=== PATIENT | male | born 2000 | race Caucasian/White ===

== ENCOUNTER 2019-03-22 10:51 | Emergency (ER) | payer SELFPAY ==
[~2019-03-22] VITALS: Ht 177.8 cm; Wt 77.1 kg
--- NOTE | 2019-03-22 11:51 | RAD ---
EXAM: ABDOMEN 2 VIEWS WITH PA CHEST History: Abdominal pain, constipation TECHNIQUE: An upright view the chest and upright and supine views of the abdomen COMPARISON: None available. FINDINGS: There is no subdiaphragmatic free air. There is no bowel dilatation or evidence of obstruction. There are no abnormal calcifications. Feces identified in the colon throughout likely constipation. IMPRESSION: Feces and gas noted in the colon likely constipation. Electronically signed by: Gaurav Ford MD (03/22/2019 11:48 AM) [id number]
[2019-03-22] MEDS ORDERED: MAGNESIUM CITRATE 296 ML SOLUTION. PO ONE (12:00)
[2019-03-22 12:07] LABS: BASO % 0 % (0-3); EOS # 0.4 x10^3/uL (0.0-0.7); EOS % 3 % (0-3); HEMOGLOBIN 16.4 g/dL (13.0-17.5); LYMPH # 1.7 x10^3/uL (1.0-4.8); LYMPH % 14 % (24-48); MEAN CORPUSCULAR HEMOGLOBIN 29 pg (25-35); MEAN CORPUSCULAR HGB CONC 35 g/dL (31-37); MEAN CORPUSCULAR VOLUME 84 fL (79-100); MONO # 0.7 x10^3/uL (0.0-1.1); MONO % 6 % (0-9); NEUT # 9.5 x10^3uL (1.8-7.7); NEUT % 77 % (31-73); PLATELET COUNT 287 x10^3/uL (140-400); RED BLOOD COUNT 5.57 x10^6/uL (4.30-5.70); RED CELL DISTRIBUTION WIDTH 13.5 % (11.5-14.5); WHITE BLOOD COUNT 12.3 x10^3/uL (4.0-11.0)
[2019-03-22 12:15] LABS: CALCIUM 10.1 mg/dL (8.5-10.1); GFR 95.3; POTASSIUM 4.1 mmol/L (3.5-5.1)
[2019-03-22 12:30] LABS: ALBUMIN 4.3 g/dL (3.4-5.0); ALBUMIN/GLOBULIN RATIO 1.1 (1.0-1.7); TOTAL BILIRUBIN 0.3 mg/dL (0.2-1.0); TOTAL PROTEIN 8.1 g/dL (6.4-8.2)
[2019-03-22 13:06] LABS: BILIRUBIN,URINE SMALL (NEG); CLARITY,URINE CLEAR; NITRITE,URINE NEGATIVE (NEG); PROTEIN,URINE NEGATIVE (NEG-TRACE)
[2019-03-22 13:13] LABS: BARBITURATES NEG (NEG); BENZODIAZEPINES NEG (NEG); CANNABINOIDS POS (NEG); COCAINE NEG (NEG); METHADONE NEG (NEG); OPIATES NEG (NEG); PHENCYCLIDINE NEG (NEG)
[2019-03-22 13:15] LABS: AMPHETAMINE/METHAMPHETAMINE NEG (NEG)
[2019-03-22 13:23] LABS: COLOR,URINE DK YELLOW; SQUAMOUS EPITHELIAL CELL,UR FEW /LPF
[2019-03-22 13:24] LABS: BACTERIA,URINE 0 /HPF (0-FEW); RBC,URINE 0 /HPF (0-2); WBC,URINE OCC /HPF (0-4)
[2019-03-22] MEDS ORDERED: ONDANSETRON PF 4 MG/2 ML VIAL. IV ONE (13:45)
[2019-03-22] MEDS ORDERED: CONTRAST GIVEN. MC PRN (14:00)
[2019-03-22] MEDS ORDERED: IOHEXOL 300 MG/ML 100ML VIAL. IV ONE (14:00)
[2019-03-22 14:25] VITALS: BP 117/61
--- NOTE | 2019-03-22 14:35 | RAD ---
Examination: CT of the abdomen pelvis with IV contrast HISTORY: History of abdominal pain, vomiting TECHNIQUE: Axial CT images of the abdomen pelvis were performed with IV contrast. Coronal and sagittal reformats are performed. Exposure: One or more of the following individualized dose reduction techniques were utilized for this examination: 1. Automated exposure control 2. Adjustment of the mA and/or kV according to patient size 3. Use of iterative reconstruction technique FINDINGS: 7 mm nodule identified in the left lingula of the lung. The bibasilar lungs are clear.. No evidence of free air identified in the abdomen. The visualized liver, spleen, adrenals grossly appears unremarkable. The gallbladder is mildly distended. The stomach is mildly distended. The visualized pancreas grossly appears unremarkable. The small bowel is nondilated. Appendix is normal. There is mild diffuse thickened appearance of the colon throughout with mild surrounding fat stranding likely diffuse colitis. The bilateral kidneys enhance symmetrically. The caliber of the aorta grossly appears unremarkable. Urinary bladder is mildly distended. No evidence of lytic or destructive lesion. IMPRESSION: 1. Diffuse thickened appearance of the wall of the colon throughout with mild surrounding fat likely colitis. 2. 7 mm nodule identified in the left lingula of the lung. Follow-up nonemergent chest CT can be considered. Electronically signed by: Gaurav Ford MD (03/22/2019 2:32 PM) [facility]
[2019-03-22] MEDS ORDERED: CIPR500T94 PO (14:48)
[2019-03-22] MEDS ORDERED: METR500T PO (14:48)
[2019-03-22] MEDS ORDERED: ONDA4TAB7 PO (14:48)
--- NOTE | 2019-03-22 14:48 | PHYS DOC ---
Past Medical History Past Medical History: Other Additional Past Medical Histor: L HIP DYSPLASIA Past Surgical History: Other Additional Past Surgical Histo: L HIP Additional Information: 1 PPD Alcohol Use: None Drug Use: None Adult General Chief Complaint Chief Complaint: ABDOMINAL PAIN HPI HPI Patient is a 18 year old male with no significant medical history presents to the ED today complaining of 10 out of 10 sharp intermittent bilateral low back pain radiating to bilateral low abdomen that began 3 days ago. Patient states he has not had a bowel movement for 3 days. He states he feels nauseated but has not vomited. Denies any diarrhea. Denies any fever. Review of Systems Review of Systems Constitutional: Denies fever or chills [] Eyes: Denies change in visual acuity, redness, or eye pain [] HENT: Denies nasal congestion or sore throat [] Respiratory: Denies cough or shortness of breath [] Cardiovascular: No additional information not addressed in HPI [] GI: Reports abdominal pain, nausea, denies any vomiting, denies any diarrhea, concerned he could be constipated : Denies dysuria or hematuria [] Musculoskeletal: Reports back pain Integument: Denies rash or skin lesions [] Neurologic: Denies headache, focal weakness or sensory changes [] Endocrine: Denies polyuria or polydipsia [] All other systems were reviewed and found to be within normal limits, except as documented in this note. Current Medications Current Medications Current Medications Medications (Trade) Dose Ordered Sig/Bello Start Time Stop Time Status Last Admin Dose Admin Info (CONTRAST GIVEN -- Rx MONITORING) 1 each PRN DAILY PRN 03/22/19 14:00 03/24/19 13:59 Iohexol (Omnipaque 300 Mg/ml) 75 ml 1X ONCE 03/22/19 14:00 03/22/19 14:01 DC 03/22/19 14:18 75 ML Magnesium Citrate (Citroma) 296 ml 1X ONCE 03/22/19 12:00 03/22/19 12:01 DC 03/22/19 12:23 296 ML Ondansetron HCl (Zofran) 4 mg 1X ONCE 03/22/19 13:45 03/22/19 13:46 DC 03/22/19 14:25 4 MG Allergies Allergies Allergies Coded Allergies Type Severity Reaction Last Updated Verified No Known Drug Allergies 03/22/19 No Physical Exam Physical Exam Constitutional: Well developed, well nourished, no acute distress, non-toxic appearance. [] HENT: Normocephalic, atraumatic, bilateral external ears normal, oropharynx moist, no oral exudates, nose normal. [] Eyes: PERRLA, EOMI, conjunctiva normal, no discharge. [] Neck: Normal range of motion, no tenderness, supple, no stridor. [] Cardiovascular:Heart rate regular rhythm, no murmur [] Lungs & Thorax: Bilateral breath sounds clear to auscultation [] Abdomen: Bowel sounds normal, soft, mild tenderness noted on the left lower quadrant, no right upper quadrant or right lower quadrant tenderness, no guarding, no rebound tenderness, no masses, no pulsatile masses. [] Skin: Warm, dry, no erythema, no rash. [] Back: No tenderness, no CVA tenderness. [] Extremities: No tenderness, no cyanosis, no clubbing, ROM intact, no edema. [] Neurologic: Alert and oriented X 3, normal motor function, normal sensory function, no focal deficits noted. [] Psychologic: Affect normal, judgement normal, mood normal. [] Current Patient Data Vital Signs Vital Signs Date Time Temp Pulse Resp B/P (MAP) Pulse Ox O2 Delivery O2 Flow Rate FiO2 03/22/19 14:25 82 17 117/61 (79) 97 Room Air 03/22/19 11:08 97.6 97.6 Lab Values Laboratory Tests Test 03/22/19 11:43 03/22/19 12:50 White Blood Count 12.3 x10^3/uL (4.0-11.0) H Red Blood Count 5.57 x10^6/uL (4.30-5.70) Hemoglobin 16.4 g/dL (13.0-17.5) Hematocrit 47.0 % (39.0-53.0) Mean Corpuscular Volume 84 fL (79-100) Mean Corpuscular Hemoglobin 29 pg (25-35) Mean Corpuscular Hemoglobin Concent 35 g/dL (31-37) Red Cell Distribution Width 13.5 % (11.5-14.5) Platelet Count 287 x10^3/uL (140-400) Neutrophils (%) (Auto) 77 % (31-73) H Lymphocytes (%) (Auto) 14 % (24-48) L Monocytes (%) (Auto) 6 % (0-9) Eosinophils (%) (Auto) 3 % (0-3) Basophils (%) (Auto) 0 % (0-3) Neutrophils # (Auto) 9.5 x10^3uL (1.8-7.7) H Lymphocytes # (Auto) 1.7 x10^3/uL (1.0-4.8) Monocytes # (Auto) 0.7 x10^3/uL (0.0-1.1) Eosinophils # (Auto) 0.4 x10^3/uL (0.0-0.7) Basophils # (Auto) 0.0 x10^3/uL (0.0-0.2) Sodium Level 140 mmol/L (136-145) Potassium Level 4.1 mmol/L (3.5-5.1) Chloride Level 100 mmol/L (98-107) Carbon Dioxide Level 33 mmol/L (21-32) H Anion Gap 7 (6-14) Blood Urea Nitrogen 8 mg/dL (8-26) Creatinine 1.0 mg/dL (0.7-1.3) Estimated GFR (Cockcroft-Gault) 95.3 BUN/Creatinine Ratio 8 (6-20) Glucose Level 92 mg/dL (70-99) Calcium Level 10.1 mg/dL (8.5-10.1) Total Bilirubin 0.3 mg/dL (0.2-1.0) Aspartate Amino Transferase (AST) 13 U/L (15-37) L Alanine Aminotransferase (ALT) 20 U/L (16-63) Alkaline Phosphatase 58 U/L (46-116) Total Protein 8.1 g/dL (6.4-8.2) Albumin 4.3 g/dL (3.4-5.0) Albumin/Globulin Ratio 1.1 (1.0-1.7) Lipase 57 U/L (73-393) L Ethyl Alcohol Level < 10 mg/dL (0-10) Urine Collection Type Unknown Urine Color Dk yellow Urine Clarity Clear Urine pH 7.0 Urine Specific Dodson 1.020 Urine Protein Negative mg/dL (NEG-TRACE) Urine Glucose (UA) Negative mg/dL (NEG) Urine Ketones (Stick) 15 mg/dL (NEG) Urine Blood Negative (NEG) Urine Nitrite Negative (NEG) Urine Bilirubin Small (NEG) Urine Urobilinogen Dipstick 1.0 mg/dL (0.2 mg/dL) Urine Leukocyte Esterase Trace (NEG) Urine RBC 0 /HPF (0-2) Urine WBC Occ /HPF (0-4) Urine Squamous Epithelial Cells Few /LPF Urine Bacteria 0 /HPF (0-FEW) Urine Mucus Marked /LPF Urine Opiates Screen Neg (NEG) Urine Methadone Screen Neg (NEG) Urine Barbiturates Neg (NEG) Urine Phencyclidine Screen Neg (NEG) Urine Amphetamine/Methamphetamine Neg (NEG) Urine Benzodiazepines Screen Neg (NEG) Urine Cocaine Screen Neg (NEG) Urine Cannabinoids Screen Pos (NEG) Urine Ethyl Alcohol Neg (NEG) Laboratory Tests 03/22/19 11:43 Laboratory Tests 03/22/19 11:43 EKG EKG [] Radiology/Procedures Radiology/Procedures PROCEDURE: ACUTE ABDOMEN SERIES EXAM: ABDOMEN 2 VIEWS WITH PA CHEST History: Abdominal pain, constipation TECHNIQUE: An upright view the chest and upright and supine views of the abdomen COMPARISON: None available. FINDINGS: There is no subdiaphragmatic free air. There is no bowel dilatation or evidence of obstruction. There are no abnormal calcifications. Feces identified in the colon throughout likely constipation. IMPRESSION: Feces and gas noted in the colon likely constipation. Electronically signed by: Gaurav Ford MD (03/22/2019 11:48 AM) [id number] DICTATED and SIGNED BY: GAURAV FORD MD DATE: 03/22/19 1148 []PROCEDURE: CT ABD PELV W/ IV CONTRST ONLY Examination: CT of the abdomen pelvis with IV contrast HISTORY: History of abdominal pain, vomiting TECHNIQUE: Axial CT images of the abdomen pelvis were performed with IV contrast. Coronal and sagittal reformats are performed. Exposure: One or more of the following individualized dose reduction techniques were utilized for this examination: 1. Automated exposure control 2. Adjustment of the mA and/or kV according to patient size 3. Use of iterative reconstruction technique FINDINGS: 7 mm nodule identified in the left lingula of the lung. The bibasilar lungs are clear.. No evidence of free air identified in the abdomen. The visualized liver, spleen, adrenals grossly appears unremarkable. The gallbladder is mildly distended. The stomach is mildly distended. The visualized pancreas grossly appears unremarkable. The small bowel is nondilated. Appendix is normal. There is mild diffuse thickened appearance of the colon throughout with mild surrounding fat stranding likely diffuse colitis. The bilateral kidneys enhance symmetrically. The caliber of the aorta grossly appears unremarkable. Urinary bladder is mildly distended. No evidence of lytic or destructive lesion. IMPRESSION: 1. Diffuse thickened appearance of the wall of the colon throughout with mild surrounding fat likely colitis. 2. 7 mm nodule identified in the left lingula of the lung. Follow-up nonemergent chest CT can be considered. Electronically signed by: Gaurav Ford MD (03/22/2019 2:32 PM) [facility] DICTATED and SIGNED BY: GAURAV FORD MD DATE: 03/22/19 1432 Course & Med Decision Making Course & Med Decision Making Pertinent Labs and Imaging studies reviewed. (See chart for details) This is a 18-year-old male patient presented to the ED today with low back pain radiating to bilateral abdomen that began 3 days ago, is concerned is constipated, last bowel movement 3 days ago. Acute abdominal series noted for constipation. Urine noted for small amount of leukocytes. CBC with a WBC of 12.3 and a left shift. CMP with no acute findings. Patient was given mag citrate in the ED. I went to reevaluate him. I found him vomiting. CT of the abdomen and pelvic was noted for -diffuse thickened appearance of the wall of the colon throughout with mild surrounding fat likely colitis. 7 mm nodule identified in the left lingula of the lung. Follow-up nonemergent chest CT can be considered. Patient be discharged and Flagyl and Cipro. Provided instructions to follow-up with GI. Continue to encourage him to take [id number] bowel prep medications and increase his dietary fiber intake as well as water intake.He had a bowel movement in the ED. F/u with GI in one week Caio Disclaimer Dragon Disclaimer This electronic medical record was generated, in whole or in part, using a voice recognition dictation system. Departure Departure Impression: Primary Impression: Colitis Additional Impressions: Constipation Back pain Disposition: 01 HOME, SELF-CARE Condition: STABLE Referrals: NO PCP (PCP) ALFREDO LONGORIA MD follow up in 1 week Patient Instructions: Back Pain, Adult, Colitis, Constipation, Adult Additional Instructions: You were evaluated in the emergency room for abdominal pain and back pain, you were noted to be constipation and also have colitis. Please increase your dietary fiber intake, increase your water intake. Continue taking ove [id number] bowel prep medications including MiraLAX until you have a normal bowel movement. Follow up with the provided GI doctor. Complete the prescribed antibiotics. Scripts Ondansetron Hcl (ZOFRAN) 4 Mg Tablet 1 TAB PO Q6HRS, #20 TAB Prov: ERIC HITCHCOCK APRN 03/22/19 Metronidazole (FLAGYL) 500 Mg Tablet 500 MG PO TID, #21 TAB Prov: ERIC HITCHCOCK APRN 03/22/19 Ciprofloxacin Hcl (CIPRO) 500 Mg Tablet 1 TAB PO BID, #14 TAB Prov: ERIC HITCHCOCK APRN 03/22/19 Problem Qualifiers Additional Impressions: Constipation Constipation type: unspecified constipation type Qualified Codes: K59.00 - Constipation, unspecified Back pain Back pain location: low back pain Chronicity: acute Back pain laterality: bilateral Sciatica presence: without sciatica Qualified Codes: M54.5 - Low back pain ERIC HITCHCOCK APRN Mar 22, 2019 14:48
== END 2019-03-22 14:55 | disposition home or self-care (01) ==
LOC: ER 10:51
DX: K52.89 Other specified noninfective gastroenteritis and colitis (principal); K59.00 Constipation, unspecified; M54.5 Low back pain; R11.0 Nausea; F17.200 Nicotine dependence, unspecified, uncomplicated
CPT/HCPCS: 36415; 74022; 74177; 80053; 80307; 81001; 83690; 85025; 87086; 96374; 99285; G0480; J2405; Q9967